=== PATIENT | female | born 1990 | race American Indian/Alaskan Native ===

== ENCOUNTER 2016-08-10 18:41 | Emergency (ER) | payer MEDICAID ==
[2016-08-10 20:17] LABS: Basophils % (Auto) 0.6 % (0.0-1.8); Eosinophils % (Auto) 1.4 % (0.0-4.3); Hematocrit 39.7 % (30.3-42.9); Mean Corpuscular HGB Conc 33 % (30-34); Mean Corpuscular Hemoglobin 36 pg (28-32); Mean Corpuscular Volume 110 fl (79-97); Red Blood Count 3.62 M/mm3 (3.65-5.03); Red Cell Distribution Width 13.7 % (13.2-15.2); White Blood Count 10.1 K/mm3 (4.5-11.0)
[2016-08-10 20:23] LABS: Platelet Count 106 K/mm3 (140-440)
[2016-08-10 20:38] LABS: Bacteria,Urine 1+ /HPF (Negative); Bilirubin,Urine NEG (Negative); Blood,Urine LG (Negative); Ketones,Urine NEG (Negative); Leukocyte Esterase,Urine TR (Negative); Nitrite,Urine NEG (Negative); Protein,Urine <15 mg/dL mg/dL (Negative); Urobilinogen,Urine < 2.0 mg/dL (<2.0); WBC,Urine < 1.0 /HPF (0.0-6.0)
[2016-08-10 20:42] LABS: Blood Urea Nitrogen 6 mg/dL (7-17); Calcium 9.7 mg/dL (8.4-10.2); Carbon Dioxide 23 mmol/L (22-30); Glucose 91 mg/dL (65-100)
--- NOTE | 2016-08-10 21:10 | Ultrasound Report ---
FINAL REPORT PROCEDURE: US OB \T\lt; = 14 WEEKS FETUS TECHNIQUE: Real-time transabdominal sonography of the uterus, placenta, amniotic fluid, adnexa, and fetus was performed with image documentation. Measurements were obtained to determine age/size. M-mode Doppler was used to document heartbeat. CPT 40274 HISTORY: vaginal bleeding less than 20 weeks COMPARISON: No prior studies are available for comparison. FINDINGS: CRL: 21.2 mm, which corresponds to a gestational age of: 8 weeks, 5 days. Yolk Sac: Normal. Embryonic Cardiac Activity: 167 beats per minute Gestational Sac: Normal. Amniotic fluid: Normal. Cervix: Normal. The ovaries are not identified. Estimated delivery date: 03/17/2017 Uterus and adnexa: Normal. IMPRESSION: Single live intrauterine gestation at approximately 8 weeks and 5 days. EDC by US 03/17/2017
--- NOTE | 2016-08-10 21:11 | Ultrasound Report ---
FINAL REPORT PROCEDURE: US OB \T\lt; = 14 WEEKS FETUS TECHNIQUE: Real-time transvaginal sonography of the uterus, placenta, amniotic fluid, adnexa, and fetus was performed with image documentation. Measurements were obtained to determine age/size. M-mode Doppler was used to document heartbeat. HISTORY: vaginal bleeding less than 20 weeks COMPARISON: No prior studies are available for comparison. FINDINGS: CRL: 21.2 mm, which corresponds to a gestational age of: 8 weeks, 5 days. Yolk Sac: Normal. Embryonic Cardiac Activity: 167 beats per minute Gestational Sac: Normal. Amniotic fluid: Normal. Cervix: Normal. The ovaries are not identified. Estimated delivery date: 03/17/2017 Uterus and adnexa: Normal. IMPRESSION: Single live intrauterine gestation at approximately 8 weeks and 5 days. EDC by US 03/17/2017
[2016-08-10 21:28] LABS: Anion Gap 20 mmol/L; Chloride 96.8 mmol/L (98-107); Potassium 4.1 mmol/L (3.6-5.0); Sodium 136 mmol/L (137-145)
--- NOTE | 2016-08-11 00:11 | Emergency Department Report ---
ED Female HPI - General Chief complaint: Vaginal Bleeding Stated complaint: 8 WKS PREG/BLEEDING Time Seen by Provider: 08/11/16 00:02 Source: patient, RN notes reviewed, old records reviewed Mode of arrival: Ambulatory Limitations: No Limitations - History of Present Illness Initial comments: This is a 25-year-old female. She is 1, para 0. Last menstrual period is April 11. Gynecology: A clinic The patient presents to the ER with painless vaginal bleeding. It has been intermittent. It worsened yesterday. There is currently no abdominal pain. The bleeding has no exacerbating or relieving factors. No irritative or obstructive urinary symptoms. No right lower quadrant pain. Defecating normally. Mild nausea, no vomiting. No recent sexual activity. No recent vaginal trauma. MD Complaint: vaginal bleeding -: Gradual Consistency: intermittent Improves with: none Worsens with: none Are you Now?: Yes Associated Symptoms: vaginal bleeding - Related Data Sexually active: Yes : 1 Para: 0 Previous Rx's Medication Instructions Recorded Last Taken Type Ibuprofen [Motrin] 600 mg PO Q8H PRN #30 tablet 12/20/15 Unknown Rx Doxylamine/Pyridoxine HCl 1 each PO QHS PRN #30 tablet. 08/11/16 Unknown Rx [Annie Osborn 10-10 mg Tablet] Vit W-Ca,Fe,FA(<1 mg) 1 each PO QDAY #30 tablet 08/11/16 Unknown Rx [ Vitamins] Allergies Allergy/AdvReac Type Severity Reaction Status Date / Time No Known Allergies Allergy Verified 07/11/13 12:18 ED Review of Systems ROS: Stated complaint: 8 WKS PREG/BLEEDING Other details as noted in HPI Constitutional: denies: fever Eyes: denies: vision change ENT: denies: epistaxis Respiratory: denies: cough Cardiovascular: denies: chest pain Gastrointestinal: as per HPI, nausea Genitourinary: abnormal menses. denies: dysuria Musculoskeletal: denies: back pain Skin: denies: lesions Neurological: denies: weakness ED Past Medical Hx - Past Medical History Previous Medical History?: Yes Hx Asthma: Yes Additional medical history: Kidney infections, July 2012, genital herpes, mild case of ulcers & inflammation. - Surgical History Past Surgical History?: Yes Additional Surgical History: wisdom teeth and additional tooth pulled 08/09/14. - Social History Smoking Status: Never Smoker Substance Use Type: None - Medications Home Medications: Home Medications Medication Instructions Recorded Confirmed Last Taken Type Ibuprofen [Motrin] 600 mg PO Q8H PRN #30 tablet 12/20/15 Unknown Rx Doxylamine/Pyridoxine HCl 1 each PO QHS PRN #30 tablet. 08/11/16 Unknown Rx [Diclegis Dr 10-10 mg Tablet] Vit W-Ca,Fe,FA(<1 mg) 1 each PO QDAY #30 tablet 08/11/16 Unknown Rx [ Vitamins] ED Physical Exam - General Limitations: No Limitations General appearance: alert, in no apparent distress - Head Head exam: Present: atraumatic, normocephalic - Eye Eye exam: Present: normal appearance, EOMI. Absent: nystagmus - ENT ENT exam: Present: normal exam, normal orophraynx, mucous membranes moist, normal external ear exam - Neck Neck exam: Present: normal inspection, full ROM. Absent: tenderness, meningismus - Respiratory Respiratory exam: Present: normal lung sounds bilaterally. Absent: respiratory distress, wheezes, rales, rhonchi, stridor, chest wall tenderness, accessory muscle use, decreased breath sounds, prolonged expiratory - Cardiovascular Cardiovascular Exam: Present: regular rate, normal rhythm, normal heart sounds. Absent: bradycardia, tachycardia, irregular rhythm, systolic murmur, diastolic murmur, rubs, gallop - GI/Abdominal GI/Abdominal exam: Present: soft, normal bowel sounds. Absent: distended, tenderness, guarding, rebound, rigid, pulsatile mass - External exam: Present: normal external exam Speculum exam: Present: normal speculum exam, vaginal bleeding Bi-manual exam: Present: normal bi-manual exam, other (escorted by ALISSA Mckeon). Absent: cervical motion tendernes, adnexal tenderness, adnexal mass - Extremities Exam Extremities exam: Present: normal inspection, full ROM, normal capillary refill. Absent: tenderness, pedal edema, joint swelling, calf tenderness - Back Exam Back exam: Present: normal inspection, full ROM. Absent: tenderness, CVA tenderness (R), CVA tenderness (L), muscle spasm, paraspinal tenderness, vertebral tenderness - Neurological Exam Neurological exam: Present: alert, oriented X3, normal gait, other (Extraocular movements intact. Tongue midline. No facial droop. Facial sensation intact to light touch in the V1, V2, V3 distribution bilaterally. 5 and 5 strength in 4 extremities.. Sensation is intact to light touch in 4 extremities.). Absent : motor sensory deficit - Psychiatric Psychiatric exam: Present: normal affect, normal mood - Skin Skin exam: Present: warm, dry, intact, normal color. Absent: rash ED Course Vital Signs 08/10/16 08/11/16 19:18 00:31 Temperature 98.4 F Pulse Rate 85 60 Respiratory 16 Rate Blood Pressure 143/87 Blood Pressure 115/89 [Right] O2 Sat by Pulse 100 99 Oximetry - Reevaluation(s) Reevaluation #1: 08/11/16 00:33 differential diagnosis: Miscarriage, threatened miscarriage, , subchronic hemorrhage, urinary tract infection. Assessment and plan: A 25-year-old female with mild vaginal bleeding. Her physical exam is essentially unremarkable. History and physical do not corroborate urinary tract infection. Ultrasound demonstrates appropriate intrauterine .. Clinical presentation is consistent with threatened miscarriage. She is afebrile with reassuring vital signs tolerating liquid feeds. She is given appropriate counseling and instructions, discharged with vitamins and when necessary nausea medication. She will be discharged at this time. Return precautions are reviewed. ED Medical Decision Making - Lab Data Result diagrams: 08/10/16 19:49 08/10/16 19:49 Vital Signs 08/10/16 19:18 Temperature 98.4 F Pulse Rate 85 Blood Pressure 143/87 O2 Sat by Pulse 100 Oximetry Lab Results 08/10/16 08/10/16 08/10/16 Range/Units 19:40 19:49 19:49 WBC 10.1 (4.5-11.0) K/mm3 RBC 3.62 L (3.65-5.03) M/mm3 Hgb 13.0 (10.1-14.3) gm/dl Hct 39.7 (30.3-42.9) % MCV 110 H (79-97) fl MCH 36 H (28-32) pg MCHC 33 (30-34) % RDW 13.7 (13.2-15.2) % Plt Count 106 L (140-440) K/mm3 Lymph % (Auto) 26.5 (13.4-35.0) % [place] % (Auto) 7.5 H (0.0-7.3) % Eos % (Auto) 1.4 (0.0-4.3) % Baso % (Auto) 0.6 (0.0-1.8) % Lymph # 2.7 (1.2-5.4) K/mm3 [place] # 0.8 (0.0-0.8) K/mm3 Eos # 0.1 (0.0-0.4) K/mm3 Baso # 0.1 (0.0-0.1) K/mm3 Seg Neutrophils % 64.0 (40.0-70.0) % Seg Neutrophils # 6.4 (1.8-7.7) K/mm3 Sodium (137-145) mmol/L Potassium (3.6-5.0) mmol/L Chloride (98-107) mmol/L Carbon Dioxide (22-30) mmol/L Anion Gap mmol/L BUN (7-17) mg/dL Creatinine (0.7-1.2) mg/dL Estimated GFR ml/min BUN/Creatinine Ratio % Glucose (65-100) mg/dL Calcium (8.4-10.2) mg/dL HCG, Quant 54724 H (0-4) mIU/mL Urine Color (Yellow) Urine Turbidity (Clear) Urine pH (5.0-7.0) Ur Specific [place] (1.003-1.030) Urine Protein (Negative) mg/dL Urine Glucose (UA) (Negative) mg/dL Urine Ketones (Negative) mg/dL Urine Blood (Negative) Urine Nitrite (Negative) Ur Reducing Substances Urine Bilirubin (Negative) Urine Ictotest Urine Urobilinogen (<2.0) mg/dL Ur Leukocyte Esterase (Negative) Urine WBC (Auto) (0.0-6.0) /HPF Urine RBC (Auto) (0.0-6.0) /HPF U Epithel Cells (Auto) (0-13.0) /HPF Urine Bacteria (Auto) (Negative) /HPF Urine HCG, Qual (Negative) Blood Type O POSITIVE Antibody Screen TNR ENE Antibody Screen Negative 08/10/16 08/10/16 Range/Units 19:49 20:15 WBC (4.5-11.0) K/mm3 RBC (3.65-5.03) M/mm3 Hgb (10.1-14.3) gm/dl Hct (30.3-42.9) % MCV (79-97) fl MCH (28-32) pg MCHC (30-34) % RDW (13.2-15.2) % Plt Count (140-440) K/mm3 Lymph % (Auto) (13.4-35.0) % [place] % (Auto) (0.0-7.3) % Eos % (Auto) (0.0-4.3) % Baso % (Auto) (0.0-1.8) % Lymph # (1.2-5.4) K/mm3 [place] # (0.0-0.8) K/mm3 Eos # (0.0-0.4) K/mm3 Baso # (0.0-0.1) K/mm3 Seg Neutrophils % (40.0-70.0) % Seg Neutrophils # (1.8-7.7) K/mm3 Sodium 136 L (137-145) mmol/L Potassium 4.1 (3.6-5.0) mmol/L Chloride 96.8 L (98-107) mmol/L Carbon Dioxide 23 (22-30) mmol/L Anion Gap 20 mmol/L BUN 6 L (7-17) mg/dL Creatinine 0.5 L (0.7-1.2) mg/dL Estimated GFR > 60 ml/min BUN/Creatinine Ratio 12.00 % Glucose 91 (65-100) mg/dL Calcium 9.7 (8.4-10.2) mg/dL HCG, Quant (0-4) mIU/mL Urine Color Straw (Yellow) Urine Turbidity Clear (Clear) Urine pH 6.0 (5.0-7.0) Ur Specific [place] 1.002 L (1.003-1.030) Urine Protein <15 mg/dl (Negative) mg/dL Urine Glucose (UA) Neg (Negative) mg/dL Urine Ketones Neg (Negative) mg/dL Urine Blood Lg (Negative) Urine Nitrite Neg (Negative) Ur Reducing Substances Not Reportable Urine Bilirubin Neg (Negative) Urine Ictotest Not Reportable Urine Urobilinogen < 2.0 (<2.0) mg/dL Ur Leukocyte Esterase Tr (Negative) Urine WBC (Auto) < 1.0 (0.0-6.0) /HPF Urine RBC (Auto) 1.0 (0.0-6.0) /HPF U Epithel Cells (Auto) 1.0 (0-13.0) /HPF Urine Bacteria (Auto) 1+ (Negative) /HPF Urine HCG, Qual Positive A (Negative) Blood Type Antibody Screen ENE Antibody Screen - Radiology Data Radiology results: report reviewed, image reviewed Transvaginal ultrasound demonstrated single live intrauterine gestation at 8 weeks and 5 days. heartbeat 167 bpm. No acute disease. Unremarkable ultrasound otherwise. Critical care attestation.: If time is entered above; I have spent that time in minutes in the direct care of this critically ill patient, excluding procedure time. ED Disposition Clinical Impression: Threatened miscarriage Disposition: DISCHARGED TO HOME OR SELFCARE Is pt being admited?: No Does the pt Need Aspirin: No Condition: Good Instructions: Threatened Miscarriage (ED) Additional Instructions: Take the vitamins as directed. Take the nausea medication as needed. Follow up with an demurrage man within the next 7-10 days. Rest and avoid heavy lifting. Avoid sexual activity. Do not engage in sexual activity until cleared by an [facility] doctor. Return to the ER right away with severe pain, intractable nausea or vomiting, bleeding more than 2 pads soaked per hour, dizziness, lightheadedness, chest pain, shortness of breath. For your convenience, I have listed through the local gynecology groups to follow-up with. Prescriptions: Doxylamine/Pyridoxine HCl [Annie Osborn 10-10 mg Tablet] 1 each PO QHS PRN #30 tablet. PRN Reason: Nausea Vit W-Ca,Fe,FA(<1 mg) [ Vitamins] 1 each PO QDAY #30 tablet Referrals: PRIMARY CAREMD [Primary Care Provider] - 3-5 Days [facility] [Provider Group] - 3-5 Days [facility] [Provider Group] - 3-5 Days [facility] [Provider Group] - 3-5 Days
[2016-08-11 00:31] VITALS: BP 115/89
== END 2016-08-11 01:06 | disposition home or self-care (01) ==
LOC: ED 18:41
DX: O20.0 Threatened abortion (principal); O99.511 Diseases of the respiratory system complicating pregnancy, first trimester; Z3A.08 8 weeks gestation of pregnancy
CPT/HCPCS: 36415; 76801; 76817; 80048; 81001; 81025; 84702; 85025; 86850; 86900; 86901

== ENCOUNTER 2016-10-29 08:17 | Outpatient (CLI) | payer MEDICAID ==
--- NOTE | 2016-10-29 12:19 | Ultrasound Report ---
ULTRASOUND ABDOMEN COMPLETE: Technique: Transabdominal ultrasound with color Doppler interrogation. History: abdominal pain. Findings: The liver is normal size, contour and echotexture. The gallbladder dimensions are within normal limits without intraluminal stone, wall thickening, or pericholecystic fluid. The CBD is normal caliber. The visualized portions of the pancreas including the head and proximal body are within normal limits. The kidneys demonstrate no hydronephrosis or mass. Cortical thickness and echogenicity are within normal limits bilaterally. The spleen is borderline in size measuring 13 cm. No focal splenic lesion. The aorta is normal. No aneurysmal dilatation is noted. No ascites. The bladder is unremarkable. IMPRESSION: Unremarkable abdominal ultrasound. The spleen is borderline in size measuring 13 cm.
== END 2016-10-29 08:18 | disposition home or self-care (01) ==
LOC: US 08:17
PROVIDERS: ATTEND Internal Medicine Hematology & Oncology
DX: D69.59 Other secondary thrombocytopenia (principal); D64.9 Anemia, unspecified; J45.909 Unspecified asthma, uncomplicated
CPT/HCPCS: 76700

== ENCOUNTER 2016-11-02 11:03 | Outpatient (CLI) | payer MEDICAID ==
[2016-11-02 12:32] LABS: Bilirubin,Urine NEG (Negative); Blood,Urine NEG (Negative); Ketones,Urine TR mg/dL (Negative); Leukocyte Esterase,Urine SM (Negative); Nitrite,Urine POS (Negative); Protein,Urine <15 mg/dL mg/dL (Negative)
[2016-11-02 13:01] LABS: Bacteria,Urine 1+ /HPF (Negative)
[2016-11-02] MEDS ORDERED: XYLOCAINE 1% MPF 5 mL INFILTRATI ONE (14:00)
[2016-11-02 14:09] VITALS: BP 116/56
[2016-11-02] MEDS ORDERED: ROCEPHIN IM ONE (14:13)
== END 2016-11-02 14:35 | disposition home or self-care (01) ==
LOC: TRG 11:03 → LD 11:05 → TRG 14:35
PROVIDERS: ATTEND Obstetrics & Gynecology
DX: O47.02 False labor before 37 completed weeks of gestation, second trimester (principal); Z3A.20 20 weeks gestation of pregnancy
CPT/HCPCS: 81001; 87086; 96372; J0696

== ENCOUNTER 2016-12-29 09:05 | Outpatient (CLI) | payer MEDICAID ==
[2016-12-29] MEDS ORDERED: LACTATED RINGERS 500 ML IV ONE (09:13)
[2016-12-29 11:37] LABS: Bilirubin,Urine NEG (Negative); Blood,Urine NEG (Negative); Ketones,Urine NEG (Negative); Leukocyte Esterase,Urine NEG (Negative); Mucus,Urine 3+ /HPF; Nitrite,Urine NEG (Negative)
== END 2016-12-29 12:00 | disposition home or self-care (01) ==
LOC: TRG 09:05
PROVIDERS: ATTEND Obstetrics & Gynecology
DX: O47.03 False labor before 37 completed weeks of gestation, third trimester (principal); Z3A.28 28 weeks gestation of pregnancy
CPT/HCPCS: 59025; 81001

== ENCOUNTER 2017-01-04 08:47 | Outpatient (CLI) | payer MEDICAID ==
[2017-01-04 10:19] VITALS: BP 98/52
[2017-01-04] MEDS ORDERED: LACTATED RINGERS 500 ML IV ONE (10:42)
== END 2017-01-04 11:36 | disposition home or self-care (01) ==
LOC: TRG 08:47
PROVIDERS: ATTEND Obstetrics & Gynecology
DX: O47.03 False labor before 37 completed weeks of gestation, third trimester (principal); Z3A.29 29 weeks gestation of pregnancy
CPT/HCPCS: 59025

== ENCOUNTER 2017-03-18 01:36 | Inpatient (IN) | payer MEDICAID ==
--- NOTE | 2017-03-18 03:08 | Ultrasound Report ---
FINAL REPORT EXAM: US OB LIMITED HISTORY: alie only TECHNIQUE: A limited transabdominal OB sonogram was obtained. The study was obtained for evaluation of the amniotic fluid volume. FINDINGS: The ALIE is 9.3 centimeters which is within normal range. The heart is 135 BPM. The estimated gestational age is 39 weeks 6 days. IMPRESSION: ALIE of 9.3 centimeters which is within normal range. heart rate is 135 BPM.
[2017-03-18] MEDS ORDERED: SUBLIMAZE IV ONE ×3 (03:18→06:18)
[2017-03-18] MEDS ORDERED: POLYCILLIN/NS 2 GM/100 ML 2 GM/100 ML BAG IV ONE (03:20)
[2017-03-18] MEDS: STADOL IV PRN ×2 (03:40→08:57)
[2017-03-18] MEDS: LACTATED RINGERS 1,000 ML IV SCH ×2 (03:41→08:09)
[2017-03-18 03:44] LABS: Hematocrit 39.6 % (30.3-42.9); Hemoglobin 12.7 gm/dl (10.1-14.3); Mean Corpuscular HGB Conc 32 % (30-34); Mean Corpuscular Hemoglobin 35 pg (28-32); Mean Corpuscular Volume 110 fl (79-97); Red Blood Count 3.61 M/mm3 (3.65-5.03); Red Cell Distribution Width 18.3 % (13.2-15.2); White Blood Count 10.5 K/mm3 (4.5-11.0)
[2017-03-18 04:07] LABS: Platelet Count 98 K/mm3 (140-440)
[2017-03-18] MEDS ORDERED: SUBLIMAZE ONE (06:27)
[2017-03-18] MEDS ORDERED: PITOCin/NS 20 UNIT/1000ML DRIP 20,000 MILLIUNITS/1,000 ML BAG IV ONE (06:38)
[2017-03-18] MEDS ORDERED: PITOCin/NS 20 UNIT/1000ML DRIP 20 UNITS/1,000 ML BAG IV SCH ×2 (07:00→10:00)
[2017-03-18] MEDS ORDERED: POLYCILLIN/NS 1 GM/50 ML 1 GM/50 ML BAG IV SCH (08:00)
[2017-03-18] MEDS ORDERED: XYLOCAINE 2% INFILTRATI ONE (08:53)
--- NOTE | 2017-03-18 09:49 | History and Physical Report ---
History of Present Illness Date of examination: 03/18/17 Date of admission: 03/18/17 01:37 Chief complaint: srom and contractions History of present illness: Patient here for srom and contractions. She is a patient of [facility]. ob Problems include Morbid obesity Asthma Anxiety and Depression +HSV2 Trichomoniasis ITP GBS + Past History Past Medical History: asthma, other (anxiety and ADHD, Depressive) Past Surgical History: no surgical history [employer]GER History: herpes, trichomonas Social history: single. denies: smoking, alcohol abuse, prescription drug abuse - Obstetrical History Expected Date of Delivery: 03/19/17 Actual Gestation: 39 Week(s) 6 Day(s) : 1 Para: 0 Hx # Term Pregnancies: 0 Number of Pregnancies: 0 Spontaneous Abortions: 0 Induced : 0 Number of Living Children: 0 Medications and Allergies Allergies Allergy/AdvReac Type Severity Reaction Status Date / Time iron transfusion AdvReac Unknown Uncoded 03/18/17 03:16 Home Medications Medication Instructions Recorded Confirmed Last Taken Type Vit Calc,Iron,Folic 1 each PO QDAY #30 tablet 08/11/16 03/18/17 Rx [ Vitamins] valACYclovir [Valtrex] 500 mg PO BID 03/18/17 03/18/17 03/17/17 History Active Meds: Active Medications Butorphanol Tartrate (Stadol) 2 mg IV Q2H PRN PRN Reason: Labor Pain Last Admin: 03/18/17 03:40 Dose: 2 mg Lactated Ringer's (Lactated Ringers) 1,000 mls @ 125 mls/hr IV DIRECT EMILIANO Last Admin: 03/18/17 08:09 Dose: 999 mls/hr Ampicillin Sodium (Polycillin/Ns 1 Gm/50 Ml) 1 gm in 50 mls @ 100 mls/hr IV Q4H EMILIANO PRN Reason: Protocol Last Admin: 03/18/17 08:09 Dose: 100 mls/hr Oxytocin/Sodium Chloride (Pitocin/Ns 20 Unit/1000ml Drip) 20 units in 1,000 mls @ 125 mls/hr IV DIRECT EMILIANO Review of Systems All systems: negative Genitourinary: leakage of fluid, contractions - Vital Signs Vital signs: Vital Signs Resp 24 03/18/17 02:54 Temp Pulse Resp BP Pulse Ox 98.9 F 85 18 143/72 99 03/18/17 08:10 03/18/17 08:10 03/18/17 08:10 03/18/17 08:10 03/18/17 08:10 - Physical Exam Breasts: Positive: normal Cardiovascular: Regular rate, Normal S1 Lungs: Positive: Clear to auscultation, Normal air movement Abdomen: Positive: normal appearance, soft, normal bowel sounds. Negative: distention, tenderness Genitourinary (Female): Positive: normal external genitalia, normal perenium Vulva: both: normal Vagina: Positive: normal moisture Uterus: Positive: normal size, normal contour Deep Tendon Reflex Grade: Normal +2 - Obstetrical FHR: category 1 Uterine Contraction Monitor Mode: Palpation Cervical Dilatation: 5 Uterine Contraction Pattern: Regular Uterine Tone Measurement Phase: Contraction Uterine Contraction Intensity: Moderate Results Result Diagrams: 03/18/17 04:45 Abnormal lab results 03/18/17 03/18/17 Range/Units 03:10 04:45 RBC 3.61 L (3.65-5.03) M/mm3 MCV 110 H (79-97) fl MCH 35 H (28-32) pg RDW 18.3 H (13.2-15.2) % Plt Count 98 L 79 L (140-440) K/mm3 All other labs normal. Assessment and Plan A/P SROM active labor no epidural plt <100 IV pain meds expect vaginal delivery
[2017-03-18] MEDS ORDERED: ZOFRAN IV PRN (09:58)
[2017-03-18] MEDS ORDERED: PHENERGAN PO PRN (09:58)
[2017-03-18] MEDS ORDERED: PHENERGAN PR PRN (09:58)
[2017-03-18] MEDS ORDERED: TYLENOL PO PRN (09:58)
[2017-03-18] MEDS ORDERED: BENADRYL PO PRN (09:58)
--- NOTE | 2017-03-18 09:58 | Procedure Note ---
OB Delivery Note - Delivery Date of Delivery: 03/18/17 Surgeon: BISI SHELL Estimated blood loss: 500cc - Vaginal Delivery presentation: vertex Delivery position: OA Intrapartum events: none Delivery monitor: external FHT, external uterine Route of delivery: Delivery placenta: spontaneous Delivery cord: 3 umbilical vessels Episiotomy: none Delivery laceration: 2nd degree, other (bilateral periurethral ) Anesthesia: local Delivery comments: patient was noted to be c/c/+1) and commneced to pushing. She pushed 3x and delivered head in OA presentation. Shoulders easily delivered with gentle traction. The baby was placed on mom chest as Peds in room. The nasopharynx and oropharynx suctioned. The baby weighed 8 pounds 1 oz at 0849. Apgars 8 and 9. The cord was clampeed and cut and placenta delivered at 0854 intact with 3 vessel cord. evaluation of perineum revealed 2nd degree reparired in normal usual fashion with 2-0 vicryl and b/l periurethral with 2-0 running stitch. Excellent hemostasis. patietn tolerated procedure. Lidoaine used for anesthesia unable to receive epidural due to low platelets.
[2017-03-18] MEDS ORDERED: SODIUM CHLORIDE FLUSH SYRINGE 10 ML IV NR (10:00)
[2017-03-18] MEDS ORDERED: MOTRIN PO SCH (10:00)
[2017-03-18] MEDS ORDERED: TUCKS PAD TP PRN (11:00)
[2017-03-18] MEDS: NORCO 5/325 PO PRN ×2 (12:51→21:52)
[2017-03-18] MEDS: PRENATAL VITAMIN PO SCH (19:02)
[2017-03-18] MEDS: SENOKOT S PO SCH ×2 (19:03→21:54)
[2017-03-18] MEDS: COLACE PO SCH (21:53)
[2017-03-18] MEDS ORDERED: MILK OF MAGNESIA PO PRN (22:00)
[2017-03-18] MEDS ORDERED: DULCOLAX PR PRN (22:00)
[2017-03-18 23:48] LABS: Hematocrit 26.7 % (30.3-42.9); Hemoglobin 8.6 gm/dl (10.1-14.3); Mean Corpuscular HGB Conc 32 % (30-34); Mean Corpuscular Hemoglobin 35 pg (28-32); Mean Corpuscular Volume 110 fl (79-97); Red Blood Count 2.44 M/mm3 (3.65-5.03); Red Cell Distribution Width 18.5 % (13.2-15.2); White Blood Count 13.7 K/mm3 (4.5-11.0)
[2017-03-19 00:11] LABS: Platelet Count 70 K/mm3 (140-440)
[2017-03-19] MEDS: NORCO 5/325 PO PRN ×3 (04:59→18:27)
[2017-03-19] MEDS ORDERED: BOOSTRIX IM ONE (06:00)
[2017-03-19 06:44] LABS: Hematocrit 26.6 % (30.3-42.9); Hemoglobin 8.6 gm/dl (10.1-14.3); Mean Corpuscular HGB Conc 32 % (30-34); Mean Corpuscular Hemoglobin 36 pg (28-32); Red Blood Count 2.37 M/mm3 (3.65-5.03); Red Cell Distribution Width 18.8 % (13.2-15.2); White Blood Count 12.9 K/mm3 (4.5-11.0)
[2017-03-19 06:49] LABS: Mean Corpuscular Volume 112 fl (79-97); Platelet Count 67 K/mm3 (140-440)
[2017-03-19] MEDS ORDERED: M-M-R II VACCINE SUB-Q ONE (10:00)
[2017-03-19] MEDS: PRENATAL VITAMIN PO SCH (10:43)
[2017-03-19] MEDS: COLACE PO SCH (10:43)
--- NOTE | 2017-03-19 18:08 | Progress Note ---
Assessment and Plan O: VSS AF CBC: 8.6/26.6 plts:dwn 67 A: Stable PP Day 2 ITP Anemia P: Iron BID MD consulted, results reviewed Plan am discharge Subjective - Subjective Date of service: 03/19/17 Patient reports: appetite normal, voiding normally, pain well controlled, ambulating normally : doing well, nursing well Objective - Vital Signs Latest vital signs: Vital Signs Temp Pulse Resp BP BP Pulse Ox 03/19/17 12:38 97.7 F 80 18 140/80 100 03/19/17 07:24 98.5 F 96 H 18 108/48 99 03/19/17 04:02 98.6 F 85 16 121/58 98 03/19/17 00:29 98.8 F 87 16 112/52 99 03/18/17 20:36 99.2 F 93 H 16 123/68 100 Intake and Output 03/19/17 03/19/17 03/19/17 06:59 14:59 22:59 Intake Total 720 Balance 720 Intake: Oral 720 Other: Total, Intake Amount 720 # Voids Void 3 - Exam Breasts: Present: deferred Abdomen: Present: normal appearance, soft. Absent: distention, tenderness Vulva: both: normal Uterus: Present: normal, firm, fundal height below umbilicus Extremities: Present: normal - Labs Labs: Abnormal lab results 03/18/17 03/19/17 Range/Units 23:13 06:15 WBC 13.7 H 12.9 H (4.5-11.0) K/mm3 RBC 2.44 L 2.37 L (3.65-5.03) M/mm3 Hgb 8.6 L D 8.6 L (10.1-14.3) gm/dl Hct 26.7 L D 26.6 L (30.3-42.9) % MCV 110 H 112 H (79-97) fl MCH 35 H 36 H (28-32) pg RDW 18.5 H 18.8 H (13.2-15.2) % Plt Count 70 L 67 L (140-440) K/mm3
[2017-03-19] MEDS: PERCOCET 5/325 PO PRN (23:27)
[2017-03-20] MEDS: COLACE PO SCH (03:04)
[2017-03-20] MEDS: PERCOCET 5/325 PO PRN ×2 (08:30→14:06)
--- NOTE | 2017-03-20 10:54 | Progress Note ---
Assessment and Plan O: VSS AF A: Stable PP Day 2 Anemia ITP P; D/c home Rx meds RTO 2 weeks for perineal check Subjective - Subjective Date of service: 03/20/17 Patient reports: appetite normal, voiding normally, pain well controlled, ambulating normally : doing well, nursing well Objective - Vital Signs Latest vital signs: Vital Signs Temp Pulse Resp BP BP Pulse Ox 03/20/17 01:20 98.3 F 79 18 114/51 99 03/19/17 16:16 98.2 F 106 H 18 116/62 99 03/19/17 12:38 97.7 F 80 18 140/80 100 Intake and Output 03/19/17 03/20/17 03/20/17 22:59 06:59 14:59 Intake Total 480 Balance 480 Intake: Oral 480 Other: Total, Intake Amount 240 # Voids Void 1 - Exam Breasts: Present: normal, Lungs: Present: Normal air movement Abdomen: Present: normal appearance, soft. Absent: distention, tenderness Vulva: both: normal Uterus: Present: normal, firm, fundal height at umbilicus. Absent: bogginess, tenderness Extremities: Present: normal
--- NOTE | 2017-03-20 11:00 | Discharge Summary ---
Providers - Providers Date of Admission: 03/18/17 01:37 Date of discharge: 03/20/17 Attending physician: BISI SHELL MD Primary care physician: BISI SHELL MD Hospitalization Reason for admission: active labor, IUP at term Delivery: Laceration: 2nd degree, other Other procedures: none complications: other (anemia, ITP) Discharge diagnosis: IUP at term delivered [place] baby: female Condition at discharge: Good Disposition: DC- TO HOME OR SELFCARE Plan - Discharge Medications Prescriptions: Docusate Sodium [Colace CAP] 100 mg PO BID PRN #60 capsule PRN Reason: Constipation Ferrous Sulfate [Feosol 325 MG tab] 325 mg PO TID #120 tablet Ibuprofen [Motrin 600 MG tab] 600 mg PO Q6H PRN #30 tablet PRN Reason: Pain oxyCODONE /ACETAMINOPHEN [Percocet 5/325 mg] 2 tab PO Q6H PRN #30 tablet PRN Reason: Pain, Moderate (4-6) - Provider Discharge Summary Activity: routine, no sex for 6 weeks, no heavy lifting 4 weeks, no strenuous exercise Diet: routine Instructions: routine Additional instructions: [] Smoking cessation referral if applicable(refer to patient education folder for contact #) [] Refer to [facility] Booklet Call your doctor immediately for: * Fever > 100.5 * Heavy vaginal bleeding ( >1 pad per hour) * Severe persistent headache * Shortness of breath * Reddened, hot, painful area to leg or breast * Drainage or odor from incision. * Keep incision clean and dry at all times and follow doctor's instructions regarding bathing/showering - Follow up plan Follow up: BISI SHELL MD [Primary Care Provider] - EDEL SPRING MD [Staff Physician] - 14 Days (RTO 2 weeks for perineal discomfort. )
[2017-03-20 11:40] VITALS: BP 135/55
[2017-03-20] MEDS: PRENATAL VITAMIN PO SCH (13:55)
== END 2017-03-20 15:40 | disposition home or self-care (01) | DRG 774 ==
LOC: TRG 01:36 → LD 01:37 → OB 11:40
PROVIDERS: ADMIT Obstetrics & Gynecology; ATTEND Obstetrics & Gynecology
PROC: 10E0XZZ Delivery of Products of Conception, External Approach (ICD-10-PCS; principal; 2017-03-18)
PROC: 0KQM0ZZ Repair Perineum Muscle, Open Approach (ICD-10-PCS; 2017-03-18)
PROC: 3E0234Z Introduction of Serum, Toxoid and Vaccine into Muscle, Percutaneous Approach (ICD-10-PCS; 2017-03-19)
DX: O99.214 Obesity complicating childbirth (principal); O98.52 Other viral diseases complicating childbirth; Z3A.39 39 weeks gestation of pregnancy; Z68.43 Body mass index [BMI] 50.0-59.9, adult; O99.344 Other mental disorders complicating childbirth; E66.01 Morbid (severe) obesity due to excess calories; O99.52 Diseases of the respiratory system complicating childbirth; F41.8 Other specified anxiety disorders; F32.9 Major depressive disorder, single episode, unspecified; F90.9 Attention-deficit hyperactivity disorder, unspecified type; D64.9 Anemia, unspecified; O99.12 Other diseases of the blood and blood-forming organs and certain disorders involving the immune mechanism complicating childbirth; D69.3 Immune thrombocytopenic purpura; O99.824 Streptococcus B carrier state complicating childbirth; O99.02 Anemia complicating childbirth; O70.1 Second degree perineal laceration during delivery; Z37.0 Single live birth; Z23 Encounter for immunization; B00.9 Herpesviral infection, unspecified
CPT/HCPCS: 36415; 76815; 85027; 85049; 86592; 86850; 86900; 86901; 90471; 90715; 99211; G0463; J0290; J0595; J2590; J3010; J7120

== ENCOUNTER 2017-05-05 08:52 | Outpatient (CLI) | payer MEDICAID ==
--- NOTE | 2017-05-05 12:14 | XRay Report ---
AP PELVIS: Injury, pain. AP view of the pelvis shows normal pelvic contour and soft tissues. The hips are symmetric and within normal limits as are the sacroiliac joints. IMPRESSION: Normal pelvis.
--- NOTE | 2017-05-05 12:21 | XRay Report ---
SACRUM AND COCCYX: History: Pain. The bony architecture is intact. The alignment appears normal. No significant soft tissue abnormalities are seen. IMPRESSION: Normal sacrum and coccyx.
--- NOTE | 2017-05-05 12:22 | XRay Report ---
LUMBOSACRAL SPINE, FIVE VIEWS: HISTORY: Low back pain. Views of the lumbosacral spine demonstrate normal bony alignment, vertebral height and interspace distances. Oblique views show patent foramina and normal apophyseal joint alignment. IMPRESSION: Normal study.
== END 2017-05-05 08:53 | disposition home or self-care (01) ==
LOC: XRAY 08:52
PROVIDERS: ATTEND Internal Medicine
DX: M54.5 Low back pain (principal); O71.6 Obstetric damage to pelvic joints and ligaments; Z3A.00 Weeks of gestation of pregnancy not specified
CPT/HCPCS: 72110; 72170; 72220

== ENCOUNTER 2017-06-02 09:05 | Emergency (ER) | payer MEDICAID ==
[2017-06-02 10:02] LABS: Basophils # (Auto) 0.1 K/mm3 (0.0-0.1); Basophils % (Auto) 0.8 % (0.0-1.8); Eosinophils # (Auto) 0.1 K/mm3 (0.0-0.4); Eosinophils % (Auto) 1.2 % (0.0-4.3); Hematocrit 37.3 % (30.3-42.9); Hemoglobin 12.2 gm/dl (10.1-14.3); Lymphocytes # (Auto) 2.3 K/mm3 (1.2-5.4); Lymphocytes % (Auto) 28.5 % (13.4-35.0); Mean Corpuscular HGB Conc 33 % (30-34); Mean Corpuscular Hemoglobin 34 pg (28-32); Mean Corpuscular Volume 105 fl (79-97); Monocytes # (Auto) 0.6 K/mm3 (0.0-0.8); Monocytes % (Auto) 7.5 % (0.0-7.3); Red Blood Count 3.55 M/mm3 (3.65-5.03); Red Cell Distribution Width 15.2 % (13.2-15.2)
[2017-06-02 10:12] LABS: BUN/Creatinine Ratio 23; Blood Urea Nitrogen 9 mg/dL (7-17); Calcium 8.7 mg/dL (8.4-10.2); Hemolysis Index 20
--- NOTE | 2017-06-02 10:14 | Emergency Department Report ---
ED Female HPI - General Chief complaint: Vaginal Bleeding Stated complaint: VAGINAL BLEEDING Time Seen by Provider: 06/02/17 10:03 Source: patient Mode of arrival: Ambulatory Limitations: No Limitations - History of Present Illness Initial comments: 26-year-old delivered roughly 2 months ago here for persistent intermittent vaginal bleeding since then no syncope , not soaking pads for persistent vag bleeding MD Complaint: vaginal bleeding -: unknown Radiation: non-radiating Severity: mild Severity scale (0 -10): 0 Quality: cramping Improves with: none Are you Now?: No Associated Symptoms: denies other symptoms. denies: vaginal discharge, headaches, loss of appetite, shortness of breath, syncope - Related Data Home Medications Medication Instructions Recorded Confirmed Last Taken Albuterol Sulfate [Ventolin HFA] 2 puff IH Q4H PRN 06/02/17 06/02/17 Unknown Docusate Sodium [Colace CAP] 100 mg PO QDAY PRN 06/02/17 06/02/17 Unknown Ferrous Sulfate [Feosol 325 MG tab] 325 mg PO QDAY 06/02/17 06/02/17 Unknown Folic Acid [Folvite] 1 mg PO QDAY 06/02/17 06/02/17 Unknown Allergies Allergy/AdvReac Type Severity Reaction Status Date / Time iron transfusion AdvReac Unknown Uncoded 03/18/17 03:16 ED Review of Systems ROS: Stated complaint: VAGINAL BLEEDING Other details as noted in HPI Comment: All other systems reviewed and negative Constitutional: no symptoms reported. denies: chills, diaphoresis, fever, malaise ENT: denies: dental pain, hearing loss, epistaxis Respiratory: denies: orthopnea, shortness of breath, SOB with exertion, SOB at rest, stridor Cardiovascular: denies: chest pain, palpitations, dyspnea on exertion, orthopnea , edema, syncope, paroxysmal nocturnal dyspnea Endocrine: no symptoms reported Gastrointestinal: denies: abdominal pain, nausea, vomiting, diarrhea, constipation, hematemesis, melena, hematochezia Genitourinary: as per HPI. denies: hematuria, discharge Skin: denies: lesions Neurological: denies: headache, weakness, numbness, paresthesias, confusion, abnormal gait, vertigo Psychiatric: denies: auditory hallucinations, visual hallucinations, homicidal thoughts, suicidal thoughts ED Past Medical Hx - Past Medical History Hx Hypertension: No Hx Congestive Heart Failure: No Hx Diabetes: No Hx Deep Vein Thrombosis: No Hx Renal Disease: No Hx Sickle Cell Disease: No Hx Seizures: No Hx Asthma: Yes Hx COPD: No Hx HIV: No Additional medical history: Kidney infections, July 2012, genital herpes, mild case of ulcers & inflammation. - Surgical History Additional Surgical History: wisdom teeth and additional tooth pulled 08/09/14. - Social History Smoking Status: Never Smoker Substance Use Type: Alcohol - Medications Home Medications: Home Medications Medication Instructions Recorded Confirmed Last Taken Type Albuterol Sulfate [Ventolin HFA] 2 puff IH Q4H PRN 06/02/17 06/02/17 Unknown History Docusate Sodium [Colace CAP] 100 mg PO QDAY PRN 06/02/17 06/02/17 Unknown History Ferrous Sulfate [Feosol 325 MG tab] 325 mg PO QDAY 06/02/17 06/02/17 Unknown History Folic Acid [Folvite] 1 mg PO QDAY 06/02/17 06/02/17 Unknown History ED Physical Exam - General Limitations: No Limitations General appearance: alert, in no apparent distress, anxious - Head Head exam: Present: atraumatic, normocephalic - Eye Eye exam: Present: normal appearance, PERRL, EOMI - ENT ENT exam: Present: normal exam, normal orophraynx - Neck Neck exam: Absent: tenderness, meningismus - Respiratory Respiratory exam: Present: normal lung sounds bilaterally. Absent: respiratory distress, wheezes, rales, rhonchi, stridor, accessory muscle use, prolonged expiratory - Cardiovascular Cardiovascular Exam: Present: regular rate, normal rhythm, normal heart sounds - GI/Abdominal GI/Abdominal exam: Present: soft. Absent: distended, tenderness, guarding, rebound - External exam: Present: bleeding, other ([id number] vaginal bleeding no adnexal mass or tenderness no rebound or guarding) - Extremities Exam Extremities exam: Present: normal inspection, normal capillary refill. Absent: pedal edema, joint swelling, calf tenderness - Neurological Exam Neurological exam: Present: alert, oriented X3, CN II-XII intact. Absent: motor sensory deficit ED Course Vital Signs 06/02/17 06/02/17 06/02/17 09:17 09:54 10:16 Temperature 98.1 F Pulse Rate 76 Respiratory 18 Rate Blood Pressure 142/67 O2 Sat by Pulse 100 100 100 Oximetry ED Medical Decision Making - Lab Data Result diagrams: 06/02/17 09:38 06/02/17 09:38 - Radiology Data Radiology results: report reviewed - Medical Decision Making Case discussed Dr. Renae, H&H stable ,vag bleed likely is normal for her menses status post delivery 2 months ago. her ob is dr lara acevedo recommended following up in their office for a depo shot ; now patient is not orthostatic , repeat vss, otherwise unremarkable she no acute emergent process and will warrant further workup no acute abdomen is appreciated at this time she is therefore stable for outpatient follow-up, u/s shows small fibriod , no retained products and no fever, no evidence sepsis or other problesmat this time Critical care attestation.: If time is entered above; I have spent that time in minutes in the direct care of this critically ill patient, excluding procedure time. ED Disposition Clinical Impression: Vagina bleeding Disposition: DC-01 TO HOME OR SELFCARE Is pt being admited?: No Condition: Stable Instructions: Bleeding (ED), Menstruation (ED) Additional Instructions: return if worse or persistant symptoms, see dr acevedo for a depo shot, call 911 if emergent or worse symptoms Referrals: PRIMARY CARE, [Primary Care Provider] - 3-5 Days LARA ACEVEDO MD [Staff Physician] - 3-5 Days Time of Disposition: 17:11
[2017-06-02 11:12] LABS: Platelet Count 149 K/mm3 (140-440)
--- NOTE | 2017-06-02 14:27 | Ultrasound Report ---
ULTRASOUND PELVIC COMPLETE ULTRASOUND TRANSVAGINAL HISTORY: Vaginal bleeding, delivered on 03/18/17. COMPARISON: 03/18/17. TECHNIQUE: Transabdominal and transvaginal ultrasound with color doppler interrogation. FINDINGS: Uterus: The uterus is anteverted. The uterus measures 11 x 5 x 6 cm. A 1 cm intramural fibroid is noted in the posterior wall of the uterus. No large submucosal fibroid. The cervix is unremarkable. Endometrium: The endometrium measures 10-11 mm in thickness. No mass or fluid collection identified. Right ovary: 2.0 x 2.7 x 3.5 cm. No focal abnormality. Left ovary: 3.0 x 1.4 x 2.6 cm. No focal abnormality. No pelvic fluid or mass is identified. Normal color doppler interrogation. IMPRESSION: Small uterine fibroid as described, otherwise, unremarkable exam.
[2017-06-02 18:15] VITALS: BP 138/70
== END 2017-06-02 18:19 | disposition home or self-care (01) ==
LOC: ED 09:05
DX: N93.9 Abnormal uterine and vaginal bleeding, unspecified (principal); J45.909 Unspecified asthma, uncomplicated; Z88.8 Allergy status to other drugs, medicaments and biological substances
CPT/HCPCS: 36415; 76830; 76856; 80048; 84702; 85025; 86850; 86900; 86901